=== PATIENT | female | born 2000 | race Caucasian/White ===

== ENCOUNTER 2018-02-26 09:49 | Emergency (ER) | payer SELFPAY, OTHER ==
[2018-02-26] MEDS: LIDOCAINE 1% (MPF) 5 ML VIAL INJ (10:54)
[2018-02-26] MEDS: KETOROLAC 30 MG INJ IM (11:07)
== END 2018-02-26 11:50 | disposition home or self-care (01) ==
LOC: FTE 09:49
DX: S01.81XA Laceration without foreign body of other part of head, initial encounter (principal); W01.0XXA Fall on same level from slipping, tripping and stumbling without subsequent striking against object, initial encounter; Y92.9 Unspecified place or not applicable
CPT/HCPCS: 12011; 81025; 96372; 99284-25

== ENCOUNTER 2018-03-01 11:45 | Emergency (ER) | payer SELFPAY | END 2018-03-01 13:20 | disposition home or self-care (01) | LOC: FTE 11:45 | DX: S01.82XD Laceration with foreign body of other part of head, subsequent encounter (principal); X58.XXXD Exposure to other specified factors, subsequent encounter; Z48.01 Encounter for change or removal of surgical wound dressing | CPT/HCPCS: 99283 ==

== ENCOUNTER 2018-09-30 23:21 | Emergency (ER) | payer MEDICAID, OTHER ==
[2018-10-01] MEDS: ACETAMINOPHEN 325 MG TAB PO (01:19)
== END 2018-10-01 02:50 | disposition home or self-care (01) ==
LOC: FTE 23:21
DX: O9A.212 Injury, poisoning and certain other consequences of external causes complicating pregnancy, second trimester (principal); S39.91XA Unspecified injury of abdomen, initial encounter; Y04.2XXA Assault by strike against or bumped into by another person, initial encounter; Y92.9 Unspecified place or not applicable; Z3A.16 16 weeks gestation of pregnancy
CPT/HCPCS: 76805; 99284-25